=== PATIENT | male | born 1955 | race Caucasian/White ===

== ENCOUNTER 2020-09-14 07:37 | Outpatient (REF) | payer MEDICARE, SELFPAY ==
[2020-09-14 08:19] LABS: MANUAL DIFF FLAG NO
[2020-09-14 08:22] LABS: Basophils Absolute Auto 0.1 X10*3/uL (0.0-0.2); Basophils Percent Auto 0.8 % (0-2); Eosinophils Absolute Auto 0.3 X10*3/uL (0.0-0.4); Hematocrit 46.1 % (42-52); Hemoglobin 16.1 g/dl (14.0-18.0); Imm Gran Abs Auto 0.04 X10*3/uL (0.00-0.03); Imm Gran Pct Auto 0.4 % (0.0-0.4); Lymphocytes Absolute Auto 2.9 X10*3/uL (1.2-4.9); Lymphocytes Percent Auto 26.7 % (20-40); Mean Corpuscular HGB Conc 34.9 g/dl (31.0-36.0); Mean Corpuscular Hemoglobin 34.1 pg (27.0-33.0); Mean Corpuscular Volume 97.7 fL (80-98); Mean Platelet Volume 10.4 fL (9.4-12.4); Monocytes Absolute Auto 0.8 X10*3/uL (0.1-1.2); Neutrophils Absolute Auto 6.7 X10*3/uL (2.0-8.3); Neutrophils Percent Auto 62.1 % (45-73); Platelet Count 222 X10*3/uL (160-400); Red Blood Count 4.72 X10*6/uL (4.60-5.80); Red Cell Distribution Width 12.9 % (11.0-16.0); White Blood Count 10.8 X10*3/uL (4.8-10.8)
[2020-09-14 08:48] LABS: Alanine Aminotransferase 18 U/L (0-40); Albumin Level 4.3 g/dL (3.5-5.0); Alkaline Phosphatase 84 U/L (39-117); Anion Gap 12 (12-20); Aspartate Amino Transferase 19 U/L (5-37); Bilirubin Total 0.7 mg/dL (0.0-1.0); Blood Urea Nitrogen 13 mg/dL (9-16); Calcium 9.3 mg/dL (8.4-10.2); Carbon Dioxide 27 mmol/L (22-29); Chloride 101 mmol/L (96-108); Cholesterol 202 mg/dL; Estimated Glomerular Filt Rate > 60; Glucose Fasting 82 mg/dL (60-99); HDL Cholesterol 40 mg/dL; LDL Cholesterol Calculated 148 mg/dl; Potassium 4.2 mmol/l (3.3-5.1); Sodium 136 mmol/L (135-145); Total Protein 7.4 g/dL (6.5-8.0); Triglycerides 72 mg/dL
[2020-09-14 09:09] LABS: Thyroid Stimulating Hormone 0.92 mIU/mL (0.32-4.0)
== END 2020-09-14 07:38 | disposition home or self-care (01) ==
LOC: HO.LAB 07:37
PROVIDERS: PCP Internal Medicine; Visit Provider Internal Medicine
DX: I10 Essential (primary) hypertension (principal)
CPT/HCPCS: 36415; 80053; 80061; 84443; 85025

== ENCOUNTER 2022-04-11 07:47 | Outpatient (REF) | payer MEDICARE, SELFPAY ==
[2022-04-11 08:12] LABS: MANUAL DIFF FLAG NO
[2022-04-11 08:27] LABS: Basophils Absolute Auto 0.1 X10*3/uL (0.0-0.2); Eosinophils Absolute Auto 0.3 X10*3/uL (0.0-0.4); Eosinophils Percent Auto 3.5 % (0-4); Hematocrit 46.3 % (42.0-52.0); Hemoglobin 15.9 g/dl (14.0-18.0); Imm Gran Abs Auto 0.05 X10*3/uL (0.00-0.03); Imm Gran Pct Auto 0.6 % (0.0-0.4); Lymphocytes Percent Auto 35.6 % (20-40); Mean Corpuscular HGB Conc 34.3 g/dl (31.0-36.0); Mean Corpuscular Hemoglobin 33.1 pg (27.0-33.0); Mean Corpuscular Volume 96.5 fL (80.0-98.0); Monocytes Absolute Auto 0.5 X10*3/uL (0.1-1.2); Monocytes Percent Auto 6.1 % (2-11); Neutrophils Absolute Auto 4.5 x10*3/uL (2.0-8.3); Neutrophils Percent Auto 53.2 % (45-73); Platelet Count 189 X10*3/uL (160-400); Red Cell Distribution Width 12.5 % (11.0-16.0); White Blood Count 8.4 X10*3/uL (4.8-10.8)
[2022-04-11 08:41] LABS: Alanine Aminotransferase 26 U/L (0-40); Albumin Level 4.1 g/dL (3.5-5.0); Alkaline Phosphatase 80 U/L (39-117); Anion Gap 10 (12-20); Aspartate Amino Transferase 23 U/L (5-37); Bilirubin Total 0.6 mg/dL (0.0-1.0); Blood Urea Nitrogen 9 mg/dL (9-16); Calcium 9.4 mg/dL (8.4-10.2); Carbon Dioxide 26 mmol/L (22-29); Chloride 104 mmol/L (96-108); Cholesterol 202 mg/dL; Estimated Glomerular Filt Rate > 60; Glucose Fasting 99 mg/dL (60-99); HDL Cholesterol 36 mg/dL; LDL Cholesterol Calculated 154 mg/dl; Potassium 4.4 mmol/L (3.3-5.1); Sodium 136 mmol/L (135-145); Total Protein 7.3 g/dL (6.5-8.0); Triglycerides 63 mg/dL
[2022-04-11 09:03] LABS: Thyroid Stimulating Hormone 1.06 uIU/mL (0.32-4.0)
== END 2022-04-11 07:48 | disposition home or self-care (01) ==
LOC: HO.LAB 07:47
PROVIDERS: PCP Internal Medicine; Visit Provider Internal Medicine
DX: Z00.00 Encounter for general adult medical examination without abnormal findings (principal); Z13.0 Encounter for screening for diseases of the blood and blood-forming organs and certain disorders involving the immune mechanism; Z13.9 Encounter for screening, unspecified; E78.5 Hyperlipidemia, unspecified
CPT/HCPCS: 36415; 80053; 80061; 84443; 85025

== ENCOUNTER 2024-03-14 08:26 | Outpatient (REF) | payer MEDICARE, SELFPAY ==
[2024-03-14 08:45] LABS: MANUAL DIFF FLAG NO
[2024-03-14 08:58] LABS: Basophils Absolute Auto 0.1 X10*3/uL (0.0-0.2); Basophils Percent Auto 1.1 % (0-2); Eosinophils Absolute Auto 0.4 X10*3/uL (0.0-0.4); Eosinophils Percent Auto 4.7 % (0-4); Hematocrit 48.4 % (42.0-52.0); Hemoglobin 16.5 g/dl (14.0-18.0); Imm Gran Pct Auto 1.2 % (0.0-0.4); Lymphocytes Absolute Auto 2.2 X10*3/uL (1.2-4.9); Lymphocytes Percent Auto 25.1 % (20-40); Mean Corpuscular HGB Conc 34.1 g/dl (31.0-36.0); Mean Corpuscular Hemoglobin 33.3 pg (27.0-33.0); Mean Corpuscular Volume 97.6 fL (80.0-98.0); Mean Platelet Volume 10.1 fL (9.4-12.4); Monocytes Absolute Auto 0.6 X10*3/uL (0.1-1.2); Monocytes Percent Auto 7.1 % (2-11); Neutrophils Absolute Auto 5.2 x10*3/uL (2.0-8.3); Neutrophils Percent Auto 60.8 % (45-73); Platelet Count 176 X10*3/uL (160-400); Red Blood Count 4.96 X10*6/uL (4.60-5.80); Red Cell Distribution Width 12.9 % (11.0-16.0); White Blood Count 8.6 X10*3/uL (4.8-10.8)
[2024-03-14 09:28] LABS: Alanine Aminotransferase 19 U/L (0-40); Albumin Level 4.2 g/dL (3.5-5.0); Alkaline Phosphatase 91 U/L (39-117); Anion Gap 12 (12-20); Aspartate Amino Transferase 21 U/L (5-37); Bilirubin Total 0.6 mg/dL (0.0-1.0); Blood Urea Nitrogen 13 mg/dL (9-16); Calcium 9.5 mg/dL (8.4-10.2); Carbon Dioxide 27 mmol/L (22-29); Chloride 105 mmol/L (96-108); Cholesterol 209 mg/dL (<200); Estimated Glomerular Filt Rate > 60; Glucose Fasting 93 mg/dL (60-99); HDL Cholesterol 35 mg/dL (>40); LDL Cholesterol Calculated 155 mg/dL (<100); Potassium 4.1 mmol/L (3.3-5.1); Sodium 140 mmol/L (135-145); Total Protein 7.8 g/dL (6.5-8.0); Triglycerides 99 mg/dL (<150)
[2024-03-14 09:46] LABS: Prostate Specific Antigen Scr 2.93 ng/mL (<0.05-4.0)
== END 2024-03-14 08:27 | disposition home or self-care (01) ==
LOC: HO.LAB 08:26
PROVIDERS: PCP Internal Medicine; Visit Provider Internal Medicine
DX: Z00.00 Encounter for general adult medical examination without abnormal findings (principal); Z13.220 Encounter for screening for lipoid disorders; Z12.5 Encounter for screening for malignant neoplasm of prostate; Z20.2 Contact with and (suspected) exposure to infections with a predominantly sexual mode of transmission
CPT/HCPCS: 36415; 80053; 80061; 84153; 85025

== ENCOUNTER 2024-03-19 08:54 | Outpatient (AMB) | payer MEDICARE, SELFPAY ==
[2024-03-19 09:06] VITALS: BP 142/90; PULSE 70; O2SAT 97; BMI 27.8
--- NOTE | 2024-03-19 09:06 | MHC.PC.OV ---
Vital Signs 03/19/24 09:06 Height 6 ft Weight 205 lb BMI 27.8 BP 142/90 H Blood Pressure Location Lt brachial Position Sitting Pulse 70 Pulse Source Pulse Oximeter Pulse Oximetry (%) 97 Oxygen Delivery Method Room Air Intake Visit Reasons: pe [employer] Sales Representative Required: No Network Developer: Not Required per policy Accompanied by: Self / Same As Patient Allergies No Known Allergies [No Known Allergies*] Allergy (Verified 03/19/24 09:06) Medication List - Last Reconciled 03/19/24 by Cale Davis MD losartan 50 mg PO DAILY Tobacco use date assessed: 03/19/24 Fall risk assessment: No Falls in past year Last assessed Fall Risk: 03/19/24 Dental Screening Dental Screen Date: 03/19/24 Did you have a dental visit in the last 12 months?: No Did you have a dental problem in the last 6 months where you did not have access to dental care?: No Was dental information given to patient?: Patient has dentist HPI pe HPI Details HTN on Rx; doing well PFSH Medical History (Updated 03/19/24 @ 09:31 by Cale Davis MD) Hypertension Surgical History H/O knee surgery Family History (Updated 03/19/24 @ 09:11 by DESIREE Rowe) Father No problems noted. Mother No problems noted. 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 1. Little interest or pleasure in doing things: not at all 2. Feeling down, depressed, or hopeless: not at all 3. Trouble falling or staying asleep, or sleeping too much: not at all 4. Feeling tired or having little energy: not at all 5. Poor appetite or overeating: not at all 6. Feeling bad about yourself - or that you are a failure or have let yourself or your family down: not at all 7. Trouble concentrating on things, such as reading the newspaper or watching television: not at all 8. Moving or speaking so slowly that other people could have noticed. Or the opposite - being so fidgety or restless that you have been moving around a lot more than usual: not at all 9. Thoughts that you would be better off or of hurting yourself in some way: not at all Total score: 0 Depression Screening Interpretation: Negative Depression Screening Done: Yes 72952 - PHQ-9 Billing: Yes Source: Developed by Drs. Dwight Muoñz, Mag Wynn, Andrea Gutierrez and colleagues, with an educational jose from [employer]. Thrive Questionnaire Date Thrive assessed: 03/19/24 I am a: Patient What is your living situation today?: I have a steady place to live Within the past 12 months, did the food you bought not last and you didn't have the money to get more?: Never true Within the past 12 months, did you worry whether your food would run out before you got money to buy more?: Never true Do you have trouble paying for medicines?: No Do you have trouble getting transportation to medical appointments?: No Do you have trouble paying your heating and electricity bill?: No Do you have trouble taking care of your child, family member or friend?: No Do you have trouble with day-to-day activities such as bathing, preparing meals, shopping, managing finances, etc.?: No Are you currently unemployed and looking for a job?: No Are you interested in more education?: No Please select the resources that you would like help with: None THRIVE Score: 0 AUDIT C Alcohol Use Questionnaire (AUDIT-C) 1. How often do you have a drink containing alcohol?: Never Total Score: 0 Score Reviewed/Action Taken: Yes TIMOTHY-7 AMB Questionnaire TIMOTHY-7 Date TIMOTHY - 7 assessed: 03/19/24 Feeling nervous, anxious, or on edge: 0 = Not at all Not being able to stop or control worryin = Not at all Worrying too much about different things: 0 = Not at all Trouble relaxin = Not at all Being so restless that it is hard to sit still: 0 = Not at all Becoming easily annoyed or irritable: 0 = Not at all Feeling afraid as if something awful might happen: 0 = Not at all Total TIMOTHY-7 score (0-4 normal; 5-9 mild; 10-14 moderate; 15-21 severe): 0 Source: Developed by Drs. Dwight Muñoz, Mag Wynn, Andrea Gutierrez and colleagues, with an educational jose from [employer]. TIMOTHY-7 Assessment Billing TIMOTHY-7 Assessment Tool: TIMOTHY-7 Assessment 60915 Review of Systems Const Denies chills, Denies fatigue, Denies headache(s) and Denies weight loss Eyes Denies change in vision, Denies diplopia and Denies eye pain ENT Denies vertigo, Denies dizziness, Denies headache(s) and Denies nasal discharge Card Denies chest pain, Denies rapid heart rate and Denies dyspnea on exertion Resp Denies chest congestion, Denies cough, Denies pain with cough and Denies dyspnea on exertion GI Denies abdominal pain, Denies hematochezia and Denies change in bowel habits Musc Denies myalgias, Denies arthralgias and Denies joint swelling Skin/Breast Denies lesions and Denies unusual bruising Neuro Denies vertigo, Denies dizziness, Denies headache(s) and Denies focal weakness Endo Denies fatigue Physical exam (Primary Care) Vital Signs: Last Vital Signs Pulse 70 03/19/24 09:06 BP 142/90 H 03/19/24 09:06 Pulse Ox 97 03/19/24 09:06 Oxygen Delivery Method Room Air 03/19/24 09:06 BMI result Body Mass Index 27.8 Tobacco/Smoking Status: Tobacco use Status Tobacco use date assessed 03/19/24 03/19/24 09:07 Patient Tobacco Use Status Current everyday Tobacco 03/19/24 09:07 Tobacco use type Cigarette 03/19/24 09:07 e-Cigarette/Vaping Use Never Used 03/19/24 09:07 PHQ-9: PHQ-9 Score PHQ-9: Total score 0 03/19/24 09:07 Depression Screening Interpretation: Negative Thrive Assessment: Date of Thrive Assessment Date Thrive assessed 03/19/24 03/19/24 09:07 Const General: cooperative, healthy appearing and no acute distress Orientation/consciousness: oriented to person, oriented to place and oriented to time HENMT Head: Yes normal to inspection, Yes normocephalic and Yes atraumatic Mouth: Normal oral and palatal mucosa present and tongue normal Throat: Yes posterior oropharynx normal and Yes uvula midline Eyes General: appearance normal, both eyes and all related structures Neck Neck: Yes normal visual inspection, Yes full ROM and Yes no lymphadenopathy Thyroid: Thyroid normal Carotids: normal carotid upstroke Chest Chest palpation & inspection: normal inspection of the chest Resp Effort & Inspection: normal respiratory effort and able to speak in complete sentences Auscultation: clear to auscultation bilaterally Cardio Jugular venous distension: no JVD Palpation: normal PMI Rate: regular rate Rhythm: regular rhythm Heart sounds: S1 normal heart sound present and S2 normal heart sound present GI Inspection: Yes normal to inspection Palpation (GI): Soft to palpation and No hepatosplenomegaly present Auscultation: normal bowel sounds General: Yes no CVA tenderness Back/Spine/Pelvis Back: no CVA tenderness Skin General skin exam: no rashes or lesions noted Neuro General: oriented to person, oriented to place and oriented to time Extrem General: Yes normal to inspection and Yes full ROM Assessment and Plan Assessment & Plan (1) Physical exam: Code(s): Z00.00 - Encounter for general adult medical examination without abnormal findings Plan: stable (2) Hypertension: Code(s): I10 - Essential (primary) hypertension Plan: stable; same rx Orders: Orders Lipid Panel 03/14/24 Z13.220 - Encounter for screening for lipoid disorders Complete Blood Count Auto Diff 03/14/24 Z13.0 - Encounter for screening for diseases of the blood and blood-forming organs and certain disorders involving the immune mechanism Prostate Specific Antigen Scr 03/14/24 Z00.00 - Encounter for general adult medical examination without abnormal findings Comprehensive [place]. Panel Fast 03/14/24 Z13.9 - Encounter for screening, unspecified Referrals Gastroenterology Referral K63.5 - Polyp of colon Coding Level of Care Code Est Pt Prev Care >65y(97699) Diagnoses Physical exam Z00.00 Hypertension I10 Additional Codes TIMOTHY-7 Assessment Billing - TIMOTHY-7 Assessment Tool: TIMOTHY-7 Assessment 92294 ([id number])
== END 2024-03-19 09:27 | disposition home or self-care (01) ==
PROVIDERS: Visit Provider Internal Medicine
DX: Z00.00 Encounter for general adult medical examination without abnormal findings (principal); I10 Essential (primary) hypertension
CPT/HCPCS: 99397

== ENCOUNTER 2024-11-03 06:48 | Day surgery (SDC) | payer MEDICARE, SELFPAY ==
[2024-10-30 15:46] VITALS: BMI 27.7
--- NOTE | 2024-10-31 09:25 | HO.ANESPROP2 ---
Documented by User: Elina García NP 10/31/24 09:25 HPI - Anesthesia Eval Consult details Narrative: 69yo M for Colonoscopy PMFSH Active Problems Active Problems: All Active Problems Colon polyps (Acute) Physical exam (Acute) Hypertension (Acute) Past Medical History Medical History History of Mohs micrographic surgery for skin cancer Hypertension Family History Family History Father No problems noted. Mother No problems noted. Surgical History Surgical History Hx of colonoscopy H/O knee surgery Social History Social History Housing: House Are you a primary respiratory care practitioner to a significant other at home: No Do you presently have visiting nurse or other home services: No Alcohol intake: never Patient Tobacco Use Status: Current everyday Tobacco user Tobacco use type: Cigarette Cigarettes Per Day: 10 Smoked in Last 30 Days: Yes e-Cigarette/Vaping Use: Never Used Patient Interested in Nicotine Replacement: No Second Hand Smoke Exposure: Yes Have you been hit, kicked, punched, or otherwise hurt by someone within the past year? 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: No Cognitive needs: No Hearing needs: No Vision needs: Yes (glasses ) Meds Allergies Allergy/AdvReac Type Severity Reaction Status Date / Time No Known Allergies Allergy Verified 11/03/24 07:35 [No Known Allergies*] Exam Height,Weight and Vital Signs: Height 6 ft Weight 92.533 kg Assessment and Plan Assessment Anesthesia Assessment: Chart Reviewed Documented by User: Hortencia Caraballo MD 11/03/24 07:39 [facility] Past Medical History Medical History History of Mohs micrographic surgery for skin cancer Hypertension Family History Family History Father No problems noted. Mother No problems noted. Family history of problems with anesthesia: No Surgical History Surgical History Hx of colonoscopy H/O knee surgery History of Problems with Anesthesia: No Social History Social History Housing: House Are you a primary respiratory care practitioner to a significant other at home: No Do you presently have visiting nurse or other home services: No Alcohol intake: never Patient Tobacco Use Status: Current everyday Tobacco user Tobacco use type: Cigarette Cigarettes Per Day: 10 Smoked in Last 30 Days: Yes e-Cigarette/Vaping Use: Never Used Patient Interested in Nicotine Replacement: No Second Hand Smoke Exposure: Yes Have you been hit, kicked, punched, or otherwise hurt by someone within the past year? 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: No Cognitive needs: No Hearing needs: No Vision needs: Yes (glasses ) Meds Allergies Allergy/AdvReac Type Severity Reaction Status Date / Time No Known Allergies Allergy Verified 11/03/24 07:35 [No Known Allergies*] Exam Airway Mallampati Class: II TM Dist: >3cm Neck ROM: Full Heart: rrr Lungs: cta Assessment and Plan Assessment Anesthesia Assessment: Anesthesia Plan Discussed Final Anesthetic Review Family History of Problems with Anesthesia: No History of Problems with Anesthesia: No NPO: Yes ASA Class: III Final Preanesthetic Review: No Changes in Pt Med Stat, Meds/Allgs Chart Reviewed, Consent Obtained/Reviewed and Anes Risks/Benef Reviewed Patient Risk: Intermediate Procedure Risk: Low Anesthetic Plan Anesthetic Plan: MAC: Disposition: Standard PACU
--- OUTSIDE RECORDS SUMMARY | 2024-11-03 06:50 | XMS_ITS ---
Author Organization [facility] Address [address] [place] [address] Care Team Providers Care Appeals Writer Name Role Phone Cale Davis MD Primary Care Provider Dwight Mckeon Unavailable [phone] REASON FOR VISIT screening,hx polyps Encounters Encounter Location Date Provider Diagnosis [facility] [place] Out[place] [address] [place] [id number] 11/03/2024 Dwight Rodriguez PLAN OF TREATMENT Next Appt Details Provider Name:Dwight Rodriguez , 11/03/2024 08:30:00 AM, [address] [facility] , [place], [place], [phone],
--- OUTSIDE RECORDS SUMMARY | 2024-11-03 06:50 | XMS_ITS ---
Author Organization [facility] Address [address] [place] [address] Care Team Providers Care Roll Changer Name Role Phone Cale Davis MD Primary Care Provider Dwight Mckeon Unavailable [phone] ALLERGIES No Known Allergies REASON FOR VISIT Patient presents today for a colon screening MEDICATIONS Medication SIG (Take, Route, Frequency, Duration) Notes Start Date End Date Status Losartan Potassium 50 MG Oral for 100 Active SOCIAL HISTORY Tobacco Use: Social History Observation Description Date Details (start date - stop date) Current Smoker NA - NA Sex Assigned At : Social History Observation Description Sex Assigned At Unknown Tobacco Use/Smoking Question Answer Notes Patient is a current smoker How often do you smoke cigarettes? every day How many cigarettes a day do you smoke? 6-10 How soon after you wake up do you smoke your fir st cigarette? after 60 minutes Are you interested in quitting? Not ready to wili t Alcohol Screen Question Answer Notes Did you have a drink contain ing alcohol in the past year? Yes How often did you have a dri nk containing alcohol in the past year? Monthly or less (1 point) How many drinks did you have on a typical day when you were drinking in the past year? 1 or 2 drinks (0 point) How often did you have 6 or more drinks on one occasion in the past year? Never (0 point) Points 1 Interpretation Negative VITAL SIGNS BMI 27.66 kg/m2 07/22/2024 Blood pressure systolic 00 mm Hg 07/22/20 24 Blood pressure diastolic 00 mm Hg 024 Height 72 in 07/22/2024 Weight 204 lbs 07/22/2024 Encounters Encounter Location Date Provider Diagnosis [facility] [address] [place] [address] 07/22/2024 Dwight Rodriguez History of adenomato us polyp of colon Z86.010 ; Preprocedural examination Z01.818 and Encounter for screening for malignant neoplasm of colon Z12.11 ASSESSMENTS Encounter Date Diagnosis Assessment Notes Treatment Notes Treatment Clinical Notes 07/22/2024 History of adenomatous polyp of colon (ICD-10 - Z86.010) 07/22/2024 Preprocedural examination (ICD-10 - Z01.818) 07/22/2024 Encounter for screening for malignant neoplasm of colon (ICD-10 - Z12.11) PLAN OF TREATMENT Future Test Test Name Order Date COLONOSCOPY 07/22/2024 Next Appt Details Follow Up: prn, Reason: Provider Name:Dwight Rodriguez , 11/03/2024 08:30:00 AM, [address] [place] [address] , [place], [place], [phone], Progress Notes * Examination Category Sub-Category Detail Notes General Examination GENERAL APPEARANCE: pleasant , well nourished, well developed, in no acute distress HEAD: EYES: sclera non-icteric EARS: NOSE: THROAT: NECK/THYROID: no cervical lymphade nopathy, neck supple HEART: S1, S2 normal CHEST: LUNGS: clear to auscultatio n bilaterally ABDOMEN: normal bowel sounds, no guarding or rigidity, no guarding or rigidity, no masses palpable, soft, nontender, nondistended NEUROLOGIC: alert and oriented SKIN: nonjaundiced, no spi sherwin angiomata EXTREMITIES: no edema PERIPHERAL PULSES: BACK: BREASTS: MUSCULOSKELETAL: MALE GENITOURINARY: LYMPH NODES: RECTAL EXAM: FEMALE GENITOURINARY: ORAL CAVITY: mucosa moist
--- OUTSIDE RECORDS SUMMARY | 2024-11-03 06:50 | XMS_ITS | Patient Health Record ---
Author Organization [facility] Address [address] [place] [address] Care Team Providers Care Sheriff Name Role Phone Cale Davis MD Primary Care Provider Dwight Mckeon Unavailable [phone] ALLERGIES No Known Allergies REASON FOR REFERRAL No Information MEDICATIONS Medication SIG (Take, Route, Frequency, Duration) [...] Never (0 point) Points 1 Interpretation Negative PROBLEMS Problem Type ICD Code Onset Dates Problem Status W/U Status Risk SNOMED Code Notes Problem History of adenomatous polyp of colon (Z86.010) Active confirmed [id number] Problem Encounter for screening for malignant neoplasm of colon (Z12.11) Active confirmed 697828021 Problem Preprocedural examination (Z01.818) Active confirmed [id number] VITAL SIGNS Blood pressure diastolic 00 mm Hg 07/22/2024 Height 72 in 07/22/2024 Blood pressure systolic 00 mm Hg 07/22/2024 Weight 204 lbs 07/22/2024 BMI 27.66 kg/m2 07/22/2024 Encounters Encounter Location Date Provider Diagnosis [facility] [place] Out[facility] [address] [place], [place] [phone] 11/03/2024 Dwight Rodriguez [facility] [address] [place] [address] 07/22/2024 Dwight Rodriguez History of adenomato us [...] Future Test Test Name Order Date COLONOSCOPY 10/17/2017 COLONOSCOPY 07/22/2024 Next Appt Details Provider Name:Dwight Rodriguez , 11/03/2024 08:30:00 AM, [address] [facility] , [place], [place], [phone], Insurance Providers Payer Name Payer Address Payer Phone Subscriber Number Group Number Insured Name Patient Relationship to Insured Coverage Start Date Coverage End Date [facility] [address] [place] [address] [id number] THOR GERMAN Self - patient is the insured MEDICAL (GENERAL) HISTORY Medical History History ICD Code Hypertension Screening colonoscopy 7--1 1.5cm tubular adenoma removed from the rectum, diverticulosis, internal hemorrhoids Denies NH,DM,CVA,Lung disease,renal dise ase Screening colonoscopy in Dec with small tubular adenomas and hyperplastic polyps removed Surgical History Surgery Date(Month/Year) Right knee arthroscopy 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
[2024-11-03 07:15] VITALS: BMI 27.1
[2024-11-03] MEDS: Lactated Ringers 1,000 ML 100 ML IVCONT (07:21)
[2024-11-03 07:30] VITALS: BP 144/87; PULSE 74; RESP 18; TEMP 36.7; O2SAT 98
[2024-11-03 09:28] VITALS: BP 101/58; PULSE 69; RESP 16; TEMP 36.4; O2SAT 98
--- NOTE | 2024-11-03 09:30 | PM.OP ---
Brief Operative Note Date of Service: 11/03/24 Pre-op diagnosis: Screening Post-op diagnosis: other (Rectal polyp) Procedure: Colonoscopy to the cecum and TI with hot snare polypectomy Surgeon: Dwight Rodriguez MD Anesthesia: MAC Was an River Expedition Guide used for this Procedure?: No Estimated blood loss (mL): 0 Pathology: other (A. Distal rectal polyp) Condition: stable Disposition: PACU
[2024-11-03 09:43] VITALS: BP 127/68; PULSE 65; RESP 18; O2SAT 98
[2024-11-03 09:57] VITALS: BP 154/92; PULSE 68; RESP 18; TEMP 36.5; O2SAT 95
--- NOTE | 2024-11-03 10:13 | OP_ITS ---
DATE OF SERVICE: 11/03/2024 SURGEON: Dwight Rodriguez MD INDICATIONS: The patient presents for evaluation of personal history of tubular adenoma of the colon and need for colorectal cancer screening. Full consent obtained from him for this, including risks of bleeding and perforation. PREOPERATIVE DIAGNOSIS: Personal history of tubular adenoma of the colon. POSTOPERATIVE DIAGNOSIS: Personal history of tubular adenoma of the colon, colon polyp, diverticulosis, and internal hemorrhoids. PROCEDURE PERFORMED: Colonoscopy to cecum and terminal ileum with hot snare polypectomy. ESTIMATED BLOOD LOSS: COMPLICATIONS: ANESTHESIA: Monitored anesthesia care. ASSISTANTS: SPECIMENS: DESCRIPTION OF PROCEDURE: The patient was placed in the left lateral decubitus position. The digital rectal exam revealed no abnormalities. The Olympus video pediatric colonoscope was entered into the rectum and advanced easily to the cecum. Once in the cecum, I did identify normal-appearing cecal pouch with appendiceal orifice and a normal-appearing ileocecal valve. The terminal ileum was cannulated and appeared normal. Scope was withdrawn back in the colon. The entire cecum and ileocecal valve appeared normal. Scope was slowly withdrawn, assessing all mucosal surfaces carefully. For the most part, preparation was very good throughout the colon, but did require some irrigation and suctioning. There was a mild amount of sigmoid diverticulosis. I did not visualize any sign of colitis nor angiodysplasia. The only polyp I visualized was in the distal rectum seen both in the retroflexed in forward viewing position. This was approximately 10 to 12 mm in size and was removed by hot snare polypectomy and recovered by suction. The polypectomy site appeared clean, without any sign of residual polyp nor bleeding. Internal hemorrhoids were noted as well. The scope was withdrawn from the patient. He tolerated the procedure well and was returned to recovery area in stable condition. IMPRESSION: 1. Rectal polyp. 2. Diverticulosis. 3. Internal hemorrhoids. PLAN: The results of the pathology will be checked. I would recommend a repeat colonoscopy in 5 years. He was advised not to use any aspirin or NSAIDs for 1 week. MD RACHID Alvarado/ARUN / [phone]
== END 2024-11-03 10:21 | disposition home or self-care (01) ==
PROVIDERS: PCP Internal Medicine; Visit Provider Internal Medicine
PROC: 0DJD8ZZ Inspection of Lower Intestinal Tract, Via Natural or Artificial Opening Endoscopic (ICD-10-PCS; CPT 45378; principal; 2024-11-03 08:30)
DX: Z12.11 Encounter for screening for malignant neoplasm of colon (principal); K62.1 Rectal polyp; K57.30 Diverticulosis of large intestine without perforation or abscess without bleeding; K64.8 Other hemorrhoids; Z86.0101 Personal history of adenomatous and serrated colon polyps; I10 Essential (primary) hypertension; F17.210 Nicotine dependence, cigarettes, uncomplicated; Z79.899 Other long term (current) drug therapy
CPT/HCPCS: 45385; 88305; J2003; J2704

== ENCOUNTER 2025-03-12 09:34 | Outpatient (AMB) | payer MEDICARE, SELFPAY ==
--- NOTE | 2025-03-12 09:48 | A.OFFPC_ITS ---
Vital Signs 03/12/25 09:49 Height 6 ft Weight 208 lb 6 oz BMI 28.3 BP 152/82 H Blood Pressure Location Lt brachial Position Sitting Respiration 17 Pulse 75 Pulse Source Pulse Oximeter Temp 97.3 F Temp Source Temporal Artery Scan Pulse Oximetry (%) 97 Oxygen Delivery Method Room Air Intake Visit Reasons: JERAD from Dr. Davis Layout Former Required: No Accompanied by: Self / Same As Patient Allergies No Known Allergies [No Known Allergies*] Allergy (Verified 03/12/25 10:02) Medication List - Last Reconciled 03/12/25 by Aden Olivares PA-C losartan 50 mg PO DAILY Tobacco use date assessed: 03/12/25 Fall risk assessment: No Falls in past year Last assessed Fall Risk: 03/12/25 Dental Screening Dental Screen Date: 03/12/25 Did you have a dental visit in the last 12 months?: Yes Did you have a dental problem in the last 6 months where you did not have access to dental care?: No Was dental information given to patient?: Patient has dentist HPI JERAD from Dr. Davis HPI Details Dougie is a 69-year-old male here today for a transfer of care visit. Previous PCP was Dr. Davis. Patient has a past medical history significant for hypertension and hyperlipidemia. HTN: managed with losartan, exhibiting average home readings of 129-130 mmHg, t tere elevated readings suggest [place] Hypertension in clinical settings. . Tobacco dependency: The patient reports longstanding tobacco use since adolescence, presently smoking half a pack a day. This qualifies him for a lung cancer screening, particularly a low-dose CT scan, which he agreed to pursue. .. Borderline high cholesterol: Has a history of borderline high cholesterol, will recheck his fasting labs to ensure stable cholesterol. Vaccines: Needs pneumonia vaccine [facility] Medical History History of Mohs micrographic surgery for skin cancer Hypertension Surgical History Hx of colonoscopy H/O knee surgery Family History Father No problems noted. Mother No problems noted. 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 1. Little interest or pleasure in doing things: not at all 2. Feeling down, depressed, or hopeless: not at all 3. Trouble falling or staying asleep, or sleeping too much: not at all 4. Feeling tired or having little energy: not at all 5. Poor appetite or overeating: not at all 6. Feeling bad about yourself - or that you are a failure or have let yourself or your family down: not at all 7. Trouble concentrating on things, such as reading the newspaper or watching television: not at all 8. Moving or speaking so slowly that other people could have noticed. Or the opposite - being so fidgety or restless that you have been moving around a lot more than usual: not at all 9. Thoughts that you would be better off or of hurting yourself in some way: not at all Total score: 0 Depression Screening Interpretation: Negative Depression Screening Done: Yes 46144 - PHQ-9 Billing: Yes Source: Developed by Drs. Dwight Muñoz, Mag Wynn, Andrea Gutierrez and colleagues, with an educational jose from [employer]. Thrive Questionnaire Date Thrive assessed: 03/12/25 I am a: Patient What is your living situation today?: I have a steady place to live Within the past 12 months, did the food you bought not last and you didn't have the money to get more?: Never true Within the past 12 months, did you worry whether your food would run out before you got money to buy more?: Never true Do you have trouble paying for medicines?: No Do you have trouble getting transportation to medical appointments?: No Do you have trouble paying your heating and electricity bill?: No Do you have trouble taking care of your child, family member or friend?: No Do you have trouble with day-to-day activities such as bathing, preparing meals, shopping, managing finances, etc.?: No Are you currently unemployed and looking for a job?: No Are you interested in more education?: No Please select the resources that you would like help with: None Currently or been in a relationship where the following occur: No concerns reported THRIVE Score: 0 AUDIT C Alcohol Use Questionnaire (AUDIT-C) 1. How often do you have a drink containing alcohol?: Never 3. How often do you have six or more drinks on one occasion?: Never Total Score: 0 Score Reviewed/Action Taken: Yes TIMOTHY-7 AMB Questionnaire TIMOTHY-7 Date TIMOTHY - 7 assessed: 03/12/25 Feeling nervous, anxious, or on edge: 0 = Not at all Not being able to stop or control worryin = Not at all Worrying too much about different things: 0 = Not at all Trouble relaxin = Not at all Being so restless that it is hard to sit still: 0 = Not at all Becoming easily annoyed or irritable: 0 = Not at all Feeling afraid as if something awful might happen: 0 = Not at all Total TIMOTHY-7 score (0-4 normal; 5-9 mild; 10-14 moderate; 15-21 severe): 0 Source: Developed by Drs. Dwight Muñoz, Mag Wynn, Andrea Gutierrez and colleagues, with an educational jose from [employer]. TIMOTHY-7 Assessment Billing TIMOTHY-7 Assessment Tool: TIMOTHY-7 Assessment 46690 Review of Systems Const Denies headache(s) Eyes Denies loss of vision ENT Denies vertigo, Denies dizziness, Denies headache(s) and Denies sore throat Card Denies chest pain, Denies leg edema and Denies lightheadedness Resp Denies cough, Denies hemoptysis and Denies wheezing GI Denies abdominal pain, Denies melena, Denies constipation, Denies diarrhea and Denies vomiting Denies dysuria, Denies urinary frequency and Denies urinary urgency Musc Denies arthralgias, Denies joint swelling, Denies numbness and Denies tingling Neuro Denies Abnormal speech present, Denies behavioral changes, Denies vertigo, Denies dizziness, Denies headache(s), Denies loss of vision, Denies memory loss, Denies numbness and Denies tingling Psych Denies anxiety, Denies behavioral changes, Denies depression, Denies memory loss and Denies panic attacks Navi/Lymph Denies easy bleeding and Denies easy bruising Aller/Immun Denies wheezing Physical exam (Primary Care) Vital Signs: Last Vital Signs Temp 97.3 F 03/12/25 09:49 Pulse 75 03/12/25 09:49 Resp 17 03/12/25 09:49 BP 152/82 H 03/12/25 09:49 Pulse Ox 97 03/12/25 09:49 Oxygen Delivery Method Room Air 03/12/25 09:49 BMI result Body Mass Index 28.3 Tobacco/Smoking Status: Tobacco use Status Tobacco use date assessed 03/12/25 03/12/25 09:53 Patient Tobacco Use Status Current everyday Tobacco 03/12/25 10:08 Tobacco use type Cigarette 03/12/25 10:08 e-Cigarette/Vaping Use Never Used 03/12/25 10:08 PHQ-9: PHQ-9 Score PHQ-9: Total score 0 03/12/25 10:05 Depression Screening Interpretation: Negative Thrive Assessment: Date of Thrive Assessment Date Thrive assessed 03/12/25 03/12/25 09:53 Currently or been in a relationship where the following occur: No concerns reported Const General: healthy appearing, no acute distress, alert and awake Nutritional Appearance: well nourished Orientation/consciousness: oriented to person, oriented to place and oriented to time HENMT Ears: TM's normal bilaterally General nose exam: Normal nasal mucous membranes and turbinates present Eyes Conjunctivae: conjunctivae normal Sclerae: sclerae normal Pupils: Equal, round and reactive pupils present Neck Neck: Yes no lymphadenopathy and Yes no JVD Thyroid: Thyroid normal Carotids: no bruits Resp Effort & Inspection: normal respiratory effort and not tachypneic Auscultation: no crackles, no rales, no rhonchi and no wheezes Cardio Other: SYSTOLIC MURMUR NOTED Rate: regular rate Rhythm: regular rhythm Heart sounds: Murmur heart sound present systolic and normal S1 and S2 GI Palpation (GI): Soft to palpation, nontender, no hepatomegaly and no splenomegaly Auscultation: normal bowel sounds Skin General skin exam: no rashes or lesions noted and dry skin Neuro General: oriented to person, oriented to place and oriented to time Cranial nerves: Yes Equal, round and reactive pupils present Speech: No Abnormal speech present Gait exam (Neuro): Normal gait present Motor exam (neuro): no tremor noted Extrem Right upper extremity: full ROM Left upper extremity: full ROM Right lower extremity: full ROM; no edema Left lower extremity: full ROM; no edema Psych Mental Status: mental status grossly normal Speech and movement: Normal speech and movement present Affect: normal affect Attitude: cooperative Thought process: Normal thought process present Immunizations pneumoc 20-douglas conj-dip cr(PF) 0.5 mL IM syringe Performing Provider: Aden Olivares PA-C [facility] Administered by: AARON Del Real on 03/12/25 10:12 Dose Route Admin Location Dispensed Lot Number Expiration Date [facility] Senior Revenue Accountant 0.5 mL IM Left Deltoid 0.5 mL [id number] 12/20/25 [employer] Medical VIS Given Date VIS Provided VIS Publication Date 03/12/25 Single Vaccine 23 Eligibility Eligibility Date Funding Source Not [facility] Eligible 03/12/25 Private Coding Level of Care Code Est Pt Level 4 (64221) Diagnoses Primary hypertension I10 Hypertension type: primary hypertension Systolic murmur R01.1 Mixed hyperlipidemia E78.2 Hyperlipidemia type: mixed hyperlipidemia Tobacco dependence F17.200 Additional Codes TIMOTHY-7 Assessment Billing - TIMOTHY-7 Assessment Tool: TIMOTHY-7 Assessment 03775 ([id number]) PHQ-9 - 98783 - PHQ-9 Billing: Yes ([id number]) Assessment & Plan Assessment & Plan (1) Hypertension: Code(s): I10 - Essential (primary) hypertension Category: Medical Qualifiers: Hypertension type: primary hypertension Qualified Code(s): I10 - Essential (primary) hypertension Plan: Patient's blood pressure elevated today in office. He does check his blood pressure once a week and reports 120s to 130 systolic. Will continue him on his current dose of losartan 50 mg and consider up titrating per response. Advised to do a little more home blood pressure monitoring. Goal blood pressures to be below 140/90 (2) Systolic murmur: Code(s): R01.1 - Cardiac murmur, unspecified Category: Medical Plan: Patient noted to have a systolic murmur on exam. No overt signs of Congestive heart failure. Will send for baseline cardiac echocardiogram to evaluate valvular/cardiac function. (3) HLD (hyperlipidemia): Code(s): E78.5 - Hyperlipidemia, unspecified Category: Medical Qualifiers: Hyperlipidemia type: mixed hyperlipidemia Qualified Code(s): E78.2 - Mixed hyperlipidemia Plan: Patient has a history of borderline high cholesterol. Will recheck fasting lipid panel to ensure appropriate total cholesterol and LDL. Goal LDL is to be below 130 (4) Tobacco dependence: Code(s): F17.200 - Nicotine dependence, unspecified, uncomplicated Category: Medical Plan: Patient does understand he needs to quit smoking though is not willing to at this time. He has been smoking over the last 40 50 years. He is interested in lung cancer screening Orders: Orders Microalbumin, Random (w Creat) Today I10 - Essential (primary) hypertension Lipid Panel Today E78.2 - Mixed hyperlipidemia Prostate Specific Antigen Scr Today I10 - Essential (primary) hypertension, Z12.5 - Encounter for screening for malignant neoplasm of prostate Comprehensive [place]. Panel Fast Today I10 - Essential (primary) hypertension Pneumococcal 20 Immunization Today I10 - Essential (primary) hypertension, Z23 - Encounter for immunization CA echo transthoracic complete Today R01.1 - Cardiac murmur, unspecified Referrals Thoracic/General Surgery Referral F17.200 - Nicotine dependence, unspecified, uncomplicated Medications: Refilled losartan 50 mg PO DAILY 90 tabs 2RF Patient Instructions: Goal: Blood pressure to be below 140/90 in home readings, LDL to be below 130 Barriers: Adherence to physical activity and healthy eating habits
[2025-03-12 09:49] VITALS: BP 152/82; PULSE 75; RESP 17; TEMP 36.3; O2SAT 97; BMI 28.3
--- OUTSIDE RECORDS SUMMARY | 2025-03-12 10:35 | XMS_ITS ---
Author Organization [facility] Address [address] [place] [address] Care Team Providers Care Sheet Hanger Name Role Phone Cale Davis MD Primary Care Provider Dwight Mckeon Unavailable [phone] Allergies No Known Allergies REASON FOR VISIT Patient presents today for a colon screening Medications Medication SIG (Take, Route, Frequency, Duration) Notes Start Date End Date Status Losartan Potassium 50 MG Oral for 100 Active Social History Tobacco Use: Social History Observation Description Date Details (start date - stop date) Current Smoker NA - NA Tobacco Use/Smoking Question Answer Notes Patient is [...] Never (0 point) Points 1 Interpretation Negative Section Notes: Smoker 1/2 ppd, occasional b eer Vital Signs Blood pressure systolic 00 mm Hg 07/22/20 24 Blood pressure diastolic 00 mm Hg 024 Height 72 in 07/22/2024 Weight 204 lbs 07/22/2024 BMI 27.66 kg/m2 07/22/2024 Encounters Encounter Location Date Provider Diagnosis [facility] [address] [place] [address] [place] [address] 07/22/2024 Dwight Rodriguez History of adenomato us polyp of colon Z86.010 ; Preprocedural examination Z01.818 and Encounter for screening for malignant neoplasm of colon Z12.11 Assessments Encounter Date Diagnosis (ICD Code) Assessment Notes Treatment Notes Treatment Clinical Notes Section Notes 07/22/2024 History of adenomatous polyp of colon (ICD-10 - Z86.010) Overall, Thor appears quite well. Given his previous history of tubular adenomas and his last colonoscopy being over 5 years ago, I did recommend a followup colonoscopy for further screening purposes. We did review the rationale for that in regard to colon cancer prevention. Full consent is obtained for this, including risks of bleeding and perforation. The procedure will be done monitored anesthesia care. Thor was comfortable with this plan. Thank you again for allowing me to participate in Thor's care. I shall continue to keep you advised of his progress. 07/22/2024 Preprocedural examination (ICD-10 - Z01.818) Overall, Thor appears quite well. Given his previous history of tubular adenomas and his last colonoscopy being over 5 years ago, I did recommend a followup colonoscopy for further screening purposes. We did review the rationale for that in regard to colon cancer prevention. Full consent is obtained for this, including risks of bleeding and perforation. The procedure will be done monitored anesthesia care. Thor was comfortable with this plan. Thank you again for allowing me to participate in Thor's care. I shall continue to keep you advised of his progress. 07/22/2024 Encounter for screening for malignant neoplasm of colon (ICD-10 - Z12.11) Overall, Thor appears quite well. Given his previous history of tubular adenomas and his last colonoscopy being over 5 years ago, I did recommend a followup colonoscopy for further screening purposes. We did review the rationale for that in regard to colon cancer prevention. Full consent is obtained for this, including risks of bleeding and perforation. The procedure will be done monitored anesthesia care. Thor was comfortable with this plan. Thank you again for allowing me to participate in Thor's care. I shall continue to keep you advised of his progress. Plan Of Treatment Future Test Test Name Order Date COLONOSCOPY 07/22/2024 Next Appt Details Follow Up: prn, Reason: Progress Notes * THOR GERMANDOB:1955 (69 yo M)Acc No.[id number]:07/22/2024 Progress Notes Patient:?THOR GERMAN Provider:?Dwight Rodriguez MD :1955???Age:69 Y???Sex:Male Дмитрий e:07/22/2024 Address:[address] [place], [place] [id number] Pcp:Cale Davis MD Subjective: * Chief Complaints: * ???Patient presents today fo r a colon screening * HPI: ???incontinence:? I saw Thor in the office today for evaluation of his personal history of tubular adenomas of the colon and need for colorectal cancer screening. ?I last saw Thor in December of 2017, at which time he underwent a followup screening colonoscopy with removal of small tubular adenomas. He presently feels well. He enjoys a good appetite, without any significant heartburn or dysphagia. His bowel movements have been regular and without any signs of bleeding. He denies abdominal pain, jaundice, nor unintentional weight loss. He denies any known family history of colon cancer. * ROS:?General/Constitutional:?Change in appetite?denies.?Chills?denies.?Fatigue?denies.?Ophthalmologic:?Comments?all negative.?ENT:?Comments?all negative.?Respiratory:?hemoptysis?denies.?Cough?denies.?Cardiovascular:?Chest pain?denies.?Orthopnea?denies.?Gastrointestinal:?Comments?See HPI for details.?Genitourinary:?Hematuria?denies.?Dysuria?denies.?Musculoskeletal:?Painful joints?denies.?Weakness?denies.?Skin:?Itching?denies.?Rash?denies.?Neurologic:?Headache?denies.?Seizures?denies.?Psychiatric:?Comments?all negative.? * Medical History:? 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 * Family History:?Father: dece ased, diagnosed with HTN (hypertension).?Mother: , diagnosed with HTN (hypertension).? No colorectal cancer. * Social History:?Tobacco Use:?Tobacco Use/Smoking?Patient is a?current smoker,?How often do you smoke cigarettes??every day,?How many cigarettes a day do you smoke??6-10,?How soon after you wake up do you smoke your first cigarette??after 60 minutes,?Are you interested in quitting??Not ready to quit.?Drugs/Alcohol:?Alcohol Screen?Did you have a drink containing alcohol in the past year??Yes,?How often did you have a drink containing alcohol in the past year??Monthly or less (1 point), How many drinks did you have on a typical day when you were drinking in the past year??1 or 2 drinks (0 point),?How often did you have 6 or more drinks on one occasion in the past year??Never (0 point),?Points?1,?Interpretation?Negative.?Miscellaneous:?Marital status: . 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 ???Smoker 1/2 ppd, occasional beer. * Medications:?TakingLosartan Potassium 50 MG Tablet Oral Taking Losartan Potassium 50 MG Tablet Oral DiscontinuedLisinopril 10 MG Tablet 1 tablet Orally Once a dayMedication List reviewed and reconciled with the patientDiscontinued Lisinopril 10 MG Tablet 1 tablet Orally Once a dayMedication List reviewed and reconciled with the patient * Allergies:?N.K.D.A.yes[Aller gies Verified] Objective: * Vitals:?Wt: 204 lbs, Ht: 72 in, BMI:27.66 Index, BP: 00/00 mm Hg. * Examination: ???General Examination: ?GENERAL APPEARANCE:?pleasant, well nourished, well developed, in no acute distress.?EYES:?sclera non-icteric.?ORAL CAVITY:?mucosa moist.?NECK/THYROID:?no cervical lymphadenopathy, neck supple.?SKIN:?nonjaundiced, no spider angiomata.?HEART:?S1, S2 normal.?LUNGS:?clear to auscultation bilaterally.?ABDOMEN:?normal bowel sounds, no guarding or rigidity, no guarding or rigidity, no masses palpable, soft, nontender, nondistended.?EXTREMITIES:?no edema.?NEUROLOGIC:?alert and oriented.? Assessment: * Assessment: 1.?Preprocedural examination - Z01.818 (Primary)?2.?History of adenomatous polyp of colon - Z86.010?3.?Encounter for screening for malignant neoplasm of colon - Z12.11? Overall, Thor appears quite well. Given his previous history of tubular adenomas and his last colonoscopy being over 5 years ago, I did recommend a followup colonoscopy for further screening purposes. We did review the rationale for that in regard to colon cancer prevention. Full consent is obtained for this, including risks of bleeding and perforation. The procedure will be done monitored anesthesia care. Thor was comfortable with this plan. Thank you again for allowing me to participate in Thor's care. I shall continue to keep you advised of his progress. Plan: * Treatment: 2.?Encounter for screening for malignant neoplasm of colon?Procedure: COLONOSCOPY (Ordered for 07/22/2024)* with MACsched for 11/03/24 a t 8:30 ammiralax * Procedure Codes:?3017F COLOR ECTAL CA SCREEN DOC [id number] Pt scrn tbco and id as [id number] BP SCR NOT PRFRM REC REASON NOS * Preventive Medicine:? ??Counseling:?Care goal follow-up plan:?Above Normal BMI Follow-up?Giving encouragement to exercise,?BMI management provided?Yes.? ??Screenings:?Fall Risk Screening?Fall Risk Assessment:?No falls in the past year,?Assessment:?Not performed, no reason specified.? * Follow Up:?prn * * Sign off status: Completed true * Provider:?Dwight Rodriguez MD Date:? 024 Generated for Vetoi adarsh/Zulay/eTransmitting on:?03/12/2025 10:35 AM EDT History and Physical Notes * HPI (History of Present Illness) Category Sub-Category Detail Notes Category Not es incontinence I saw Thor in the office today for evaluation of his personal history of tubular adenomas of the colon and need for colorectal cancer screening. I last saw Thor in December of 2017, at which time he underwent a followup screening colonoscopy with removal of small tubular adenomas. He presently feels well. He enjoys a good appetite, without any significant heartburn or dysphagia. His bowel movements have been regular and without any signs of bleeding. He denies abdominal pain, jaundice, nor unintentional weight loss. He denies any known family history of colon cancer. Examination Category Sub-Category Detail Notes Category Not es General Examination GENERAL APPEARANCE: pleasant , well [...]
--- OUTSIDE RECORDS SUMMARY | 2025-03-12 10:35 | XMS_ITS ---
Author Organization [facility] Address [address] [place] [address] Care Team Providers Care Junior Web Developer Name Role Phone Susan AMADO, Cale Primary Care Provider Dwight Mckeon [phone] REASON FOR VISIT screening,hx polyps Problems Problem Type SNOMED Code ICD Code Onset Dates Problem Status W/U Status Risk Notes Problem Diverticular disease of colon (591758468) Diverticulosis of large intestine without perforation or abscess without bleeding (K57.30) Active confirmed Encounters Encounter Location Date Provider Diagnosis [facility] [place] Outpatient [address] [place] [phone] 11/03/2024 Dwight Rodriguez Colon cancer scree logan [...] Notes * THOR GERMANDOB:1955 (69 yo M)Acc No.[id number]:11/03/2024 COLON WITH MAC Patient:?THOR GERMAN Provider:?Dwight Rodriguez MD :1955???Age:69 Y???Sex:Male Дмитрий e:11/03/2024 Address:[address] [place] [address] , [phone] Pcp:Cale Davis MD Subjective: * Chief Complaints: * ???1. Screening,hx polyps. * Medical History:? Objective: * Vitals:? Assessment: * Assessment: 1.?Colon cancer screening - Z12.11 (Primary)???2.?Rectal polyp - K62.1???3.?Diverticulosis of large intestine without perforation or abscess without bleeding - K57.30???4.?Other hemorrhoids - K64.8??? Plan: * Treatment: * Procedure Codes:?55813 LESIO N REMOVAL COLONOSCOPY, Modifiers: PT , 0529F INTRVL 3+YRS PTS CLNSCP DOCD, 0528F RCMND FLW-UP 10 YRS DOCD, Modifiers: 1P * * The named appointment provid er may or may not be the originator of this progress note, and it is not deemed complete until electronically signed by the appointment provider. Sign off status: Pending * Provider:?Dwight Rodriguez MD Date:? 024 Generated for Reyna altamirano/Zulay/eTransmitting on:?03/12/2025 10:35 AM EDT
--- OUTSIDE RECORDS SUMMARY | 2025-03-12 10:36 | XMS_ITS | Patient Health Record ---
Author Organization [facility] Address [address] [place] [address] Care Team Providers Care Printed Circuit Board Pcb Designer Name Role Phone Cale Davis MD Primary Care Provider Dwight Mckeon Unavailable [phone] Allergies No Known Allergies Results Component Value Reference Range Notes Pathology (Not yet reviewed by provider) Interpretation: Performing Lab:[facility], [address] [place] [phone] Notes/Report: Name: Thor German Age/Sex: 69/M : 1955 Unit#: [id number] Attend Dr: Dwight Rodriguez MD Re11/03/24 Status : [facility] Location: [facility] Disch: SPEC : [id number] RECD : 11/03/24 STATUS: ALEIXS LEE NUM: [id number] [place]: 11/03/24 [facility] DR: Dwight Rodriguez MD ENTERED: 11/03/24 SP TYPE: Surgical OTHR DR: Cale Davis MD ORDERED: HE Stain/3, Gross Micro L4 Diagnosis Rectum, distal, poly pectomy: Hyperplastic mucosal polyp with prolapse changes. Clinical History Pre-Op Dx: Screening Post-Op Dx: Polyps, diverticulosis, hemorrhoids Microscopic Description Microscopic sections reviewed. Material Received Distal rectal polyp Gross Description Received in formalin labeled ?distal rectal polyp? is a 0.6 cm oliva-pink papular tissue fragment, bisected a nd entirely submitted in a cassette labeled A. CEDS Copies To: Cale Davis MD [facility] Primary Care,[address] [place] [address] Dwight Rodriguez MD [facility] [address] [place] [address] Signed (si gnature on file) Elmer Monroy MD 11/05/24 0945 END OF REPORT Reason For Referral No Information Medications Medication SIG (Take, Route, Frequency, Duration) [...] Notes: Smoker 1/2 ppd, occasional b eer Smoker 1/2 ppd, occasional b eer Problems Problem Type SNOMED Code ICD Code Onset Dates Problem Status W/U Status Risk Notes Problem [id number] Encounter for screening for malignant neoplasm of colon (Z12.11) Active confirmed Problem [id number] History of adenomatous polyp of colon (Z86.010) Active confirmed Problem Diverticular disease of colon (387648760) Diverticulosis of large intestine without perforation or abscess without bleeding (K57.30) Active confirmed Problem 382820472 Preprocedural examination (Z01.818) Active confirmed Vital Signs Blood pressure diastolic 00 mm Hg 07/22/2024 Height 72 in 07/22/2024 Blood pressure systolic 00 mm Hg 07/22/2024 Weight 204 lbs 07/22/2024 BMI 27.66 kg/m2 07/22/2024 Encounters Encounter Location Date Provider Diagnosis [facility] [place] [address] [place], [place] [phone] 11/03/2024 Dwight Rodriguez Colon cancer screeni ng Z12.11 ; Rectal polyp K62.1 ; Diverticulosis of large intestine without perforation or abscess without bleeding K57.30 and Other hemorrhoids K64.8 [facility] [address] [place] [address] 07/22/2024 Dwight Rodriguez History of adenomato us polyp of colon Z86.010 ; Preprocedural examination Z01.818 and Encounter for screening for malignant neoplasm of colon Z12.11 Assessments Encounter Date Diagnosis (ICD Code) Assessment Notes Treatment Notes Treatment Clinical Notes Section Notes 11/03/2024 Colon cancer screening (ICD-10 - Z12.11) 11/03/2024 Rectal polyp (ICD-10 - K62.1) 07/22/2024 History of adenomatous polyp of colon [...] to keep you advised of his progress. 11/03/2024 Diverticulosis of large intestine without perforation or abscess without bleeding (ICD-10 - K57.30) 07/22/2024 Encounter for screening for malignant neoplasm [...] to keep you advised of his progress. 11/03/2024 Other hemorrhoids (ICD-10 - K64.8) Plan Of Treatment Pending Test Test Name Order Date Pathology 11/03/2024 Future Test Test Name Order Date COLONOSCOPY 10/17/2017 COLONOSCOPY 07/22/2024 Insurance Providers Payer Name Payer Address Payer Phone Subscriber Number Group Number Insured Name Patient Relationship to Insured Coverage Start Date Coverage End Date [facility] [address] [place] [address] [id number] THOR GERMAN Self - patient is the insured Medical (General) History Medical History History ICD Code Hypertension Screening colonoscopy 7--1 1.5cm tubular adenoma removed from the rectum, diverticulosis, internal hemorrhoids Denies [place],DM,CVA,Lung disease,renal dise ase Screening colonoscopy in Dec ru2017 with small tubular adenomas and hyperplastic polyps removed Surgical History Surgery Date(Month/Year) Right knee arthroscopy 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
== END 2025-03-12 10:23 | disposition home or self-care (01) ==
PROVIDERS: PCP Physician Assistant; Visit Provider Physician Assistant
DX: I10 Essential (primary) hypertension (principal); R01.1 Cardiac murmur, unspecified; E78.2 Mixed hyperlipidemia; F17.200 Nicotine dependence, unspecified, uncomplicated; Z23 Encounter for immunization

== ENCOUNTER → 2025-03-12 09:34 | Outpatient (BNVA) | payer MEDICARE, SELFPAY | PROVIDERS: PCP Internal Medicine; Visit Provider Physician Assistant | DX: Z23 Encounter for immunization (principal); I10 Essential (primary) hypertension; R01.1 Cardiac murmur, unspecified; E78.2 Mixed hyperlipidemia; F17.200 Nicotine dependence, unspecified, uncomplicated; Z71.6 Tobacco abuse counseling | CPT/HCPCS: 90471; 90677; 96127; 99212 ==

== ENCOUNTER → 2025-04-08 07:48 | Outpatient (REF) | payer MEDICARE, SELFPAY ==
--- NOTE | 2025-04-08 07:52 | CA_ITS ---
Transthoracic Echocardiogram Patient (Last, First, Middle): Dougie Torres J Gender: Male Date of : 1955 Age: 69 Procedure Date: 04/08/2025 Procedure Type: Transthoracic Echocardiogram Location: OP Height: 182.88 cm Weight: 94.35 kg BSA: 2.17 m2 Heart Rate: 70 bpm BP: 152 / 80 mmHg Oven Dauber: SB/RC Referring MD: Aden Olivares PA-C Psychology Teacher: Angel Ramsey MD Symptoms: R01.1 - Cardiac murmur, unspecified Study Quality: Fair ECG Rhythm: Sinus Conclusions: - 1. Normal LV ejection fraction of 60 65% with impaired relaxation filling pattern 2. Calcific changes noted in the aortic valve and mitral annular calcification with normal cardiac valvular Dopplers 3. Mildly dilated left atrium 4. Mildly dilated ascending aorta at 4.1 cm 5. No gross pericardial effusion Findings Procedure Information The quality of the study was technically difficult. The study quality is limited by lung artifact. Left Ventricle Normal left ventricular size, thickness, and systolic function. The visually estimated ejection fraction is between 60-65%. Spectral Doppler is indicative of an impaired relaxation filling pattern. Right Ventricle Normal right ventricular cavity size and systolic function. Atria The left atrium is mildly dilated. There is no evidence of interatrial shunt. The right atrium is normal in size. Aortic Valve There is mild calcification of the aortic valve. There is no aortic valve stenosis. There is no aortic valve regurgitation. Mitral Valve There is mild anterior and moderate posterior mitral leaflet thickening. There is moderate mitral annular calcification. There is trace mitral valve regurgitation. There is no mitral valve stenosis. Pulmonic Valve The pulmonic valve was not well visualized. Tricuspid Valve Likely normal tricuspid valve structure and function. Tricuspid regurgitation envelope is inadequate for calculation of right ventricular systolic pressure. Normal right atrial pressure. Great Vessels The pulmonary artery was not well visualized. There is mild dilatation of the ascending aorta measuring 4.10 cm. Venous The inferior vena cava is normal in size and collapses greater than 50% with inspiration. Pericardium/Pleural There is no evidence of pericardial effusion. Prior Study Comparison No prior study available for comparison. Measurements 2D Linear Measurements IVSd: 1.20 0.6-0.9/0.6-1.0 cm LVIDd: 5.09 3.9-5.3/4.2-5.9 cm LVIDd Index: 2.35 2.4-3.2/2.2-3.1 cm/m2 LVIDs: 3.67 2.0-3.6 cm LVPWd: 1.02 0.7-1.1 cm LA Diam: 4.20 2.7-3.8/3.0-4.0 cm LAIDs Index: 1.94 1.5-2.3 cm/m2 LV Mass: 269.10 67-162/88-224 g LV Mass Index: 124.01 43-95/49-115 g/m2 LVOT Diam: 2.50 3.0+(-)1.3 cm 2D Systolic Function EF 4C: 64.00 >55% EF 2C: 62.10 >55% EF BiP: 64.70 >55% Mitral Valve MV VTI: 0.34 MV Pk Jed: 0.90 MV Mn Jed: 0.57 MV Pk Grad: 3.00 MV Mn Grad: 1.00 MV Pk E: 0.88 MV PK A: 0.89 MV Decel Time: 194.00 E/A: 1.00 E'Lateral: 7.83 E'Medial: 8.59 E/E' Med: 10.30 E/E' Lat: 11.30 PHT: 57.00 MVA PHT: 3.86 MVA Continuity: 3.69 Decel [place]: 4.56 Aortic Valve AoV Pk Jed: 1.26 AoV Pk Grad: 6.00 ELEANOR: 4.71 LVOT LVOT Pk Jed: 1.26 LVOT Mn Jed: 0.84 LVOT VTI: 0.26 LVOT Pk Grad: 6.00 LVOT Mn Grad: 4.00 LVOT Diam: 2.50 LVOT Area: 4.91 Diastolic Function MV Pk E: 0.88 MV Pk A: 0.89 E/A: 1.00 E'Medial: 8.59 E/E' Med: 10.30 E' Laterial: 7.83 E/E' Lat: 11.30 Right Ventricle TAPSE (mm): 23.00 TVS' Jed: 12.60 Tricuspid Valve RA Press: 3.00 Great Vessels Aorta Sinus of Valsalva: 3.80 2.0-3.5 cm Ao Asc: 4.10 2.1-3.4 cm Pulmonary Valve PV Pk Jed: 0.72 Peak PV Grad: 2.00 Updated in Other Vendor System with Status of Final Angel Ramsey MD electronically signed on 04/08/2025 1:30:31 PM with status of Final
== END ==
LOC: HO.CARD 07:48
PROVIDERS: PCP Physician Assistant; Visit Provider Physician Assistant
DX: R01.1 Cardiac murmur, unspecified (principal)
CPT/HCPCS: 93306

== ENCOUNTER → 2025-04-08 07:52 | Outpatient (BNV) | payer MEDICARE, SELFPAY | PROVIDERS: PCP Physician Assistant; Visit Provider Internal Medicine Cardiovascular Disease | DX: I35.8 Other nonrheumatic aortic valve disorders (principal); I34.81 Nonrheumatic mitral (valve) annulus calcification; I77.810 Thoracic aortic ectasia | CPT/HCPCS: 93306 ==

== ENCOUNTER 2025-05-15 09:34 | Outpatient (REF) | payer MEDICARE, SELFPAY ==
--- OUTSIDE RECORDS SUMMARY | 2024-11-03 04:30 | XMS_ITS ---
Author Organization [facility] Address [address] [place] [address] Care Team Providers Care Bond Broker Name Role Phone Susan AMADO, Cale Primary Care Provider Dwight Mckeon [phone] REASON FOR VISIT screening,hx polyps Problems Problem Type SNOMED Code ICD Code Onset Dates Problem Status W/U Status Risk Notes Problem Diverticulosis o f large intestine without perforation or abscess without bleeding (K57.30) Active confirmed Encounters Encounter Location Date Provider Diagnosis [facility] [place] [address] [place] [phone] 11/03/2024 Dwight Rodriguez Colon cancer scree logan Z12.11 ; Rectal polyp K62.1 ; Diverticulosis of large intestine without perforation or abscess without bleeding K57.30 and Other hemorrhoids K64.8 Assessments Encounter Date Diagnosis (ICD Code) Assessment Notes Treatment Notes Treatment Clinical Notes Section Notes 11/03/2024 Colon cancer screening (ICD-10 - Z12.11) 11/03/2024 Rectal polyp (ICD-10 - K62.1) 11/03/2024 Diverticulosis of large intestine without perforation or abscess without bleeding (ICD-10 - K57.30) 11/03/2024 Other hemorrhoids (ICD-10 - K64.8) Plan Of Treatment No Information Progress Notes * THOR GERMANDOB:1955 (69 yo M)Acc No.[id number]:11/03/2024 COLON WITH MAC Patient: Naveen THOR SMALLS Provider: Pérez Rodriguez MD :1955 A ge:69 Y S ex:Male Date:11/03/2024 Address:[address] [place] [address] , [place], [id number] Pcp:Cale Davis MD Subjective: * Chief Complaints: * 1 . Screening,hx polyps. * Medical History: Objective: * Vitals: Assessment: * Assessment: 1. C olon cancer screening - Z12.11 (Primary) 2 . R ectal polyp - K62.1? 3. D iverticulosis of large intestine without perforation or abscess without bleeding - K57.30 4 . O ther hemorrhoids - K64.8 Plan: * Treatment: * Procedure Codes: 4 5385 LESION REMOVAL COLONOSCOPY, Modifiers: PT , 0529F INTRVL 3+YRS PTS CLNSCP DOCD, 0528F RCMND FLW-UP 10 YRS DOCD, Modifiers: 1P * * The named appointment provid er may or may not be the originator of this progress note, and it is not deemed complete until electronically signed by the appointment provider. Sign off status: Pending * Provider: Péerz Rodriguez MD Date: 1 01/04/2024 Generated for Reyna altamirano/Zulay/Cesarsmitting on: 0 05/15/2025 10:00 AM EDT
--- NOTE | ~2025-05-15 | CT_ITS ---
EXAMINATION: CT LOW-DOSE SCREENING CHEST WITHOUT CONTRAST CLINICAL INFORMATION: 69-year-old male, current smoker, 56 pack years, lung cancer screening. COMPARISON: No prior available. TECHNIQUE: Multidetector volumetric CT imaging of the chest is performed on a Siemens SOMATOM Definition scanner without contrast using low dose technique. Additional 2D coronal and sagittal reformatted images and axial 3D maximum intensity projection (MIP) images are generated on the CT workstation. This CT examination was performed using dose optimization techniques as appropriate, variously including the following: *Automated exposure control *Adjustment of mA and/or kV according to patient size (this includes techniques or standardized protocols for targeted exams where dose is matched to indication/reason for exam; i.e. extremities or head) *Use of iterative reconstruction technique FINDINGS: PULMONARY NODULES: -There are a few scattered calcified granulomata, benign. -3 mm nodule right upper lobe anteriorly (series 5, image 70). -There are no left pulmonary nodules. LUNGS: There is mild paraseptal emphysema with upper lobe predominance. There are subpleural foci of scarring in both lower lobes. No consolidations or evidence of interstitial lung disease. Small airways appear normal. Central airways are patent. There are no effusions or pneumothorax. MEDIASTINUM: Normal thyroid. Aorta is normal in caliber with mild calcification. Main pulmonary artery is normal in size. Heart size is normal. No pericardial effusion. Calcified mitral annulus. No esophageal abnormality. No adenopathy or mass. CORONARY ARTERY CALCIFICATION: Heavy three-vessel coronary calcification. CHEST WALL/AXILLA: Unremarkable. UPPER ABDOMEN: Included portions of the solid organs in the upper abdomen unremarkable on noncontrast imaging. OSSEOUS STRUCTURES: No suspicious lytic or blastic bone lesion. Mild spinal degenerative changes present. CT/CT lung screening IMPRESSION: 1. Right upper lobe 3 mm lung nodule. A few calcified granulomata present. 2. Mild paraseptal emphysema. No active lung disease. 3. Ancillary findings as detailed. ASSESSMENT: 1. Lung-RADS Category 2: Benign appearance or behavior of nodules. 2. Lung-RADS Category S: None. RECOMMENDATION: Continued routine annual low-dose CT lung screening in 1 year is recommended. An order for CT CHEST LOW DOSE CANCER SCREENING ([id number]) can be placed. Electronically signed by: Hayden Bal MD 05/15/2025 11:00 AM EDT Workstation: [id number]
== END 2025-05-15 09:35 | disposition home or self-care (01) ==
LOC: HO.CT 09:34
PROVIDERS: PCP Physician Assistant; Visit Provider Physician Assistant Medical
DX: Z12.2 Encounter for screening for malignant neoplasm of respiratory organs (principal); F17.210 Nicotine dependence, cigarettes, uncomplicated
CPT/HCPCS: 71271; G0296

== ENCOUNTER → 2025-05-15 09:36 | Outpatient (BNV) | payer MEDICARE, SELFPAY | PROVIDERS: PCP Physician Assistant; Visit Provider Radiology Diagnostic Radiology | DX: F17.210 Nicotine dependence, cigarettes, uncomplicated (principal) | CPT/HCPCS: 71271 ==

== ENCOUNTER 2025-05-15 11:01 | Outpatient (AMB) | payer MEDICARE, SELFPAY ==
--- NOTE | 2025-05-15 08:00 | A.OFFVIS_ITS ---
Intake Visit Reasons: Current Smoker Allergies No Known Allergies (No Known Allergies*) Allergy (Verified 03/12/25 10:02) HPI HPI Current Smoker: Details: Initial visit for this 69yo smoker with a 25+PYH. Patient started smoking at age 16 for 53 years at 1/2ppd. . Denies marijuana use. Denies second hand smoke exposure. Denies exposure to chemicals or substances like asbestos. . Denies known family history of lung cancer. Personal history of skin cancers. - numerous BCC & SCC with excisions - followed by [facility]. Denies chest CT in last year. . Denies recent travel outside the [place]. Denies recent respiratory illness or recent hospitalization for respiratory issues. Denies testing positive for COVID. Admits receiving COVID Vaccine. . Denies fever, chills, new/worsening cough, hemoptysis, hoarseness or dysphagia. Denies significant chest pain, significant dyspnea or unintentional weight loss. Patient Lung Cancer Screening Questionnaire reviewed with patient by provider. . Shared Decision Making Completed. Patient meets criteria. Discussed in detail with patient, the risk vs benefit of LDCT screening. Patient consents to proceed with scan. Discussed smoking cessation. COUNTS INCLUDE 234 BEDS AT THE [facility] Medical History (Updated 05/15/25 @ 10:58 by Jenny Suarez PA-C) History of SCC (squamous cell carcinoma) of skin Tubular adenoma of colon History of basal cell carcinoma (BCC) Nicotine dependence, cigarettes, uncomplicated Hypertension Surgical History (Updated 04/16/25 @ 10:14 by Jenny Suarez PA-C) History of right knee surgery History of colonoscopy History of Mohs micrographic surgery for skin cancer Family History Father No problems noted. Mother No problems noted. 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 - Patient meets criteria for LDCT for lung cancer screening purposes and is asymptomatic. - Smoking cessation counseling offered. Patients can always call [phone]. - Will arrange for a LDCT scan of the chest for screening purposes at [facility]. - Risks, benefits, and alternatives were discussed in detail and the patient agrees to proceed. - Risks discussed include but are not limited to: radiation exposure, anxiety during testing and while awaiting results, false negatives, false positives and possibility of additional intervention such as further imaging or surgical procedures for benign disease. - Benefits are obviously detection of lung cancer at an early stage which can lead to improved outcomes. - Discussed the importance of screening program compliance with adherence to yearly LDCT scan as scheduled - or sooner interval scans for personalized screening regimen. - Discussed follow up plan. Our office will send a letter discussing results and if needed set up phone call and office visit based on CT findings. - Patient educated on results categorization and the management decisions for suspicious findings potentially found on the screening LDCT scan. Any patient with a Lung RADS score of 3 or 4 will be reviewed by a multidisciplinary team at [facility] to form a plan of action in regards to scan findings. - If further work up is warranted for a suspicious lung finding this will be f ollowed by the Lung Cancer Screening program in conjunction with the Thoracic Surgery Department at [facility]. - A copy of the office note and LDCT will be sent to the patient's PCP - as well as documentation on any associated further plans of care. - Incidental findings on LDCT are the PCP's responsibility. These findings are indicated with an S finding on the LDCT Assessment. A note discussing the findings will be sent to the PCP who is then responsible for further management. - All questions answered.? Coding Level of Care Code Lung Cancer Screening G0296 Diagnoses Nicotine dependence, cigarettes, uncomplicated F17.210
== END 2025-05-15 11:01 | disposition home or self-care (01) ==
LOC: HO.HPS 11:01
PROVIDERS: PCP Physician Assistant; Referring Provider Physician Assistant; Visit Provider Physician Assistant Medical
DX: F17.210 Nicotine dependence, cigarettes, uncomplicated (principal)
CPT/HCPCS: G0296

== ENCOUNTER 2025-07-21 07:46 | Outpatient (REF) | payer MEDICARE, SELFPAY ==
--- OUTSIDE RECORDS SUMMARY | 2024-11-03 04:30 | XMS_ITS ---
Author Organization [facility] Address [address] [place] [address] Care Team Providers Care Cashier Credit Name Role Phone Susan AMADO, Cale Primary Care Provider Dwight Mckeon [phone] REASON FOR VISIT screening,hx polyps Problems Problem Type SNOMED Code ICD Code Onset Dates Problem Status W/U Status Risk Notes Problem Diverticulosis o f large intestine without perforation or abscess without bleeding (K57.30) Active confirmed Encounters Encounter Location Date Provider Diagnosis [facility] Outpatient [address] [place] [phone] 11/03/2024 Dwight Rodriguez Colon cancer scree logan [...] No Information Progress Notes * THOR GERMANDOB:1955 (70 yo M)Acc No.[id number]:11/03/2024 COLON WITH MAC Patient: Naveen THOR SMALLS Provider: Pérez Rodriguez MD :1955 A ge:69 Y S ex:Male Date:11/03/2024 Address:[address] [place] [address] , [place], [place] Pcp:Cale Davis MD Subjective: * Chief Complaints: [...] provider. Sign off status: Pending * Provider: éPrez Rodriguez MD Date: 1 01/04/2024 Generated for Reyna altamirano/Zulay/Cesarsmitting on: 0 07/21/2025 07:49 AM EDT
--- OUTSIDE RECORDS SUMMARY | 2025-07-21 07:49 | XMS_ITS | Patient Health Record ---
Author Organization [facility] Address [address] [place] [address] Care Team Providers Care Senior Electrical Project Manager Name Role Phone Cale Davis MD Primary Care Provider Dwight Mckeon Unavailable [phone] Allergies No Known Allergies Results Component Value Reference Range Notes Pathology (Not yet reviewed by provider) Interpretation: Performing Lab:[facility], [address] [place] [id number] Notes/Report: Reason For Referral No Information Medications Medication [...] Problem Status W/U Status Risk Notes Problem [id number] Encounter for screening for malignant neoplasm of colon (Z12.11) Active confirmed Problem [id number] History of adenomatous polyp of colon (Z86.010) Active confirmed Problem Diverticulosis o f large intestine without perforation or abscess without bleeding (K57.30) Active confirmed Problem 492019201 Preprocedural examination (Z01.818) Active confirmed Vital Signs Blood pressure diastolic 00 mm Hg 07/22/2024 Height 72 in 07/22/2024 Blood pressure systolic 00 mm Hg 07/22/2024 Weight 204 lbs 07/22/2024 BMI 27.66 kg/m2 07/22/2024 Encounters Encounter Location Date Provider Diagnosis [facility] [address] [place], [place] [id number] 11/03/2024 Dwight Rodriguez Colon cancer screeni ng Z12.11 ; Rectal polyp K62.1 ; Diverticulosis of large intestine without perforation or abscess without bleeding K57.30 and Other hemorrhoids K64.8 [facility] [address] [place] [address] 07/22/2024 Dwight Rodriguez History of adenomato us [...] Insured Coverage Start Date Coverage End Date [facility] [address] [place] [address] [id number] THOR GERMAN Self - patient is the insured Medical (General) History Medical History History ICD Code Hypertension Screening colonoscopy 7--1 1.5cm tubular adenoma removed from the rectum, diverticulosis, internal hemorrhoids Denies VA,DM,CVA,Lung disease,renal dise ase Screening colonoscopy in Dec ruary 2017 with small tubular adenomas and hyperplastic polyps removed Surgical History Surgery Date(Month/Year) Right knee arthroscopy 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
[2025-07-21 09:22] LABS: Anion Gap 11 (12-20); Aspartate Amino Transferase 23 U/L (5-37); Blood Urea Nitrogen 12 mg/dL (9-16); Calcium 9.6 mg/dL (8.4-10.2); Carbon Dioxide 27 mmol/L (22-29); Chloride 106 mmol/L (96-108); Estimated Glomerular Filt Rate > 60; Potassium 4.2 mmol/L (3.3-5.1); Sodium 140 mmol/L (135-145)
[2025-07-21 09:23] LABS: Alanine Aminotransferase 24 U/L (0-40); Albumin Level 4.5 g/dL (3.5-5.0); Alkaline Phosphatase 76 U/L (39-117); Cholesterol 205 mg/dL (<200); HDL Cholesterol 35 mg/dL (>40); Total Protein 7.7 g/dL (6.5-8.0); Triglycerides 124 mg/dL (<150)
[2025-07-21 09:40] LABS: Microalbum/Creatinine Ratio Ur 88.1 ug/mg cr (<30)
== END 2025-07-21 07:47 | disposition home or self-care (01) ==
LOC: HO.LAB 07:46
PROVIDERS: Visit Provider Physician Assistant
DX: E78.2 Mixed hyperlipidemia (principal); I10 Essential (primary) hypertension; Z12.5 Encounter for screening for malignant neoplasm of prostate
CPT/HCPCS: 36415; 80053; 80061; 82043; 82570; 84153

== ENCOUNTER 2025-07-28 08:22 | Outpatient (AMB) | payer MEDICARE, SELFPAY ==
--- OUTSIDE RECORDS SUMMARY | 2024-11-03 04:30 | XMS_ITS ---
Author Organization [facility] Address [address] [place] [address] Care Team Providers Care Supervisor Liquefaction Name Role Phone Cale Davis MD Primary Care Provider Dwight Mckeon Unavailable [phone] REASON FOR VISIT screening,hx polyps Problems Problem Type SNOMED Code ICD Code Onset Dates Problem Status W/U Status Risk Notes Problem Diverticular disease of colon (780476413) Diverticulosis of large intestine without perforation or abscess without bleeding (K57.30) Active confirmed Encounters Encounter Location Date Provider Diagnosis [facility] [place] [address] [place] [phone] 11/03/2024 Dwight Rodriguez Colon cancer scree logan [...] Notes * THOR GERMANDOB:1955 (70 yo M)Acc No.[id number]:11/03/2024 COLON WITH MAC Patient: Naveen THOR SMALLS Provider: Pérez Rodriguez MD :1955 A ge:69 Y S ex:Male Date:11/03/2024 Address:[address] [place] [address] , [place], [place] Pcp:Cale Davis MD Subjective: * Chief Complaints: [...] provider. Sign off status: Pending * Provider: Pérez Rodriguez MD Date: 1 01/04/2024 Generated for Reyna altamirano/Zulay/Cesarsmitting on: 0 07/28/2025 09:23 AM EDT
--- NOTE | 2025-07-28 08:33 | MHC.PC.OV ---
Vital Signs 07/28/25 08:34 Height 6 ft Weight 209 lb 2 oz BMI 28.4 BP 150/80 H Blood Pressure Location Lt brachial Position Sitting Pulse 73 Pulse Source Pulse Oximeter Temp 97.3 F Temp Source Temporal Artery Scan Pulse Oximetry (%) 98 Oxygen Delivery Method Room Air Intake Visit Reasons: PE - see comments Intake Note: Patient is here today for a physical. Miscellaneous Machine Operator Required: No Warp Dyeing Vat Tender: Not Required per policy Accompanied by: Self / Same As Patient Allergies No Known Allergies (No Known Allergies*) Allergy (Verified 07/28/25 08:42) Medication List - Last Reconciled 07/28/25 by Aden Olivares PA-C losartan 50 mg PO DAILY Tobacco use date assessed: 07/28/25 Fall risk assessment: No Falls in past year Last assessed Fall Risk: 07/28/25 Dental Screening Dental Screen Date: 03/12/25 HPI PE - see comments HPI Details Dougie is a 70 year-old male here today for a routine annual physical. Patient has a past medical history significant for hypertension and hyperlipidemia. HTN: His current home measurements typically ranging from 130 to 135 mmHg systolic, although in-office readings are higher, likely due to white coat syndrome. He is currently on losartan 50 mg, and there is consideration to switch to a combination medication with hydrochlorothiazide to better manage his blood pressure. . Tobacco dependency: The patient reports longstanding tobacco use since adolescence, presently smoking half a pack a day. He is followed by lung cancer screening program, most recent CT chest showing BI-RADS 2 repeat 1 year, A lung nodule was identified during a lung cancer screening CT, along with calcified granulomas, .. Mild dilation of the ascending aorta: : The patient has calcification of the aortic and mitral valves, and mild dilation of the ascending aorta, likely related to smoking and hypertension. These findings are being monitored, with emphasis on managing blood pressure and smoking cessation to prevent progression. .. Hyperlipidemia Has a history of borderline high cholesterol, will recheck his fasting labs to ensure stable cholesterol. Noted borderline high total cholesterol and LDL 146. Was previously on statin therapy and is willing to restart statin therapy to reduce his cardiovascular risk Vaccines: Considering Flu vaccine, UTD with COVID , PCV Colorectal cancer screening: Colonoscopy done in 2023 repeat 5 years Laboratory Tests 04/11/22 03/14/24 07/21/25 08:09 08:44 08:10 Cholesterol 202 209 H LDL Cholesterol, C alc 155 H PSA Screen 2.93 Urine Microalbumin 27.0 07/21/25 08:15 Cholesterol 205 H LDL Cholesterol, C alc PSA Screen 4.32 H Urine Microalbumin PFSH Medical History History of alcohol use disorder History of SCC (squamous cell carcinoma) of skin Tubular adenoma of colon History of basal cell carcinoma (BCC) Nicotine dependence, cigarettes, uncomplicated Hypertension Surgical History History of right knee surgery History of colonoscopy History of Mohs micrographic surgery for skin cancer Family History Father No problems noted. Mother No problems noted. 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 1. Little interest or pleasure in doing things: not at all 2. Feeling down, depressed, or hopeless: not at all 3. Trouble falling or staying asleep, or sleeping too much: not at all 4. Feeling tired or having little energy: not at all 5. Poor appetite or overeating: not at all 6. Feeling bad about yourself - or that you are a failure or have let yourself or your family down: not at all 7. Trouble concentrating on things, such as reading the newspaper or watching television: not at all 8. Moving or speaking so slowly that other people could have noticed. Or the opposite - being so fidgety or restless that you have been moving around a lot more than usual: not at all 9. Thoughts that you would be better off or of hurting yourself in some way: not at all Total score: 0 Depression Screening Interpretation: Negative Depression Screening Done: Yes 81622 - PHQ-9 Billing: Yes Source: Developed by Drs. Dwight Muñoz, Mag Wynn, Andrea Gutierrez and colleagues, with an educational jose from [employer]. Thrive Questionnaire Date Thrive assessed: 03/12/25 I am a: Patient What is your living situation today?: I have a steady place to live Within the past 12 months, did the food you bought not last and you didn't have the money to get more?: Sometimes True Within the past 12 months, did you worry whether your food would run out before you got money to buy more?: Never true Do you have trouble paying for medicines?: No Do you have trouble getting transportation to medical appointments?: No Do you have trouble paying your heating and electricity bill?: No Do you have trouble taking care of your child, family member or friend?: No Do you have trouble with day-to-day activities such as bathing, preparing meals, shopping, managing finances, etc.?: No Are you currently unemployed and looking for a job?: No Are you interested in more education?: No Please select the resources that you would like help with: None Currently or been in a relationship where the following occur: No concerns reported THRIVE Score: 1 AUDIT C Alcohol Use Questionnaire (AUDIT-C) 1. How often do you have a drink containing alcohol?: Never Total Score: 0 TIMOTHY-7 AMB Questionnaire TIMOTHY-7 Date TIMOTHY - 7 assessed: 03/12/25 Feeling nervous, anxious, or on edge: 0 = Not at all Not being able to stop or control worryin = Not at all Worrying too much about different things: 0 = Not at all Trouble relaxin = Not at all Being so restless that it is hard to sit still: 0 = Not at all Becoming easily annoyed or irritable: 0 = Not at all Feeling afraid as if something awful might happen: 0 = Not at all Total TIMOTHY-7 score (0-4 normal; 5-9 mild; 10-14 moderate; 15-21 severe): 0 Source: Developed by Drs. Dwight Muñoz, Mag Wynn, Andrea Gutierrez and colleagues, with an educational jose from [employer]. TIMOTHY-7 Assessment Billing TIMOTHY-7 Assessment Tool: TIMOTHY-7 Assessment 40796 Review of Systems Const Denies body aches, Denies chills, Denies excessive sweating, Denies fatigue, Denies fever(s) and Denies headache(s) Eyes Denies blurry vision ENT Denies dysphagia, Denies vertigo, Denies dizziness, Denies headache(s), Denies hearing loss and Denies tinnitus Card Denies chest pain, Denies chest pain with activity, Denies syncope, Denies irregular heart rhythm and Denies dyspnea Resp Denies chest congestion, Denies cough, Denies hemoptysis, Denies dyspnea and Denies wheezing GI Denies abdominal pain, Denies melena, Denies hematochezia, Denies coffee ground emesis, Denies dysphagia, Denies diarrhea, Denies nausea and Denies vomiting Denies difficulty urinating, Denies dysuria, Denies urinary frequency, Denies urinary hesitancy and Denies urinary urgency Musc Denies arthralgias, Denies limited range of motion, Denies muscle cramps and Denies muscle weakness Skin/Breast Denies rash and Denies skin ulcer Neuro Denies Abnormal speech present, Denies confusion, Denies vertigo, Denies dizziness, Denies syncope, Denies headache(s), Denies memory loss and Denies seizure-like activity Psych Denies anxiety, Denies confusion, Denies depression, Denies memory loss, Denies panic attacks and Denies paranoia Endo Denies excessive sweating, Denies fatigue, Denies flushing, Denies polydipsia and Denies polyuria Aller/Immun Denies wheezing Physical exam (Primary Care) Vital Signs: Last Vital Signs Temp 97.3 F 07/28/25 08:34 Pulse 73 07/28/25 08:34 BP 150/80 H 07/28/25 08:34 Pulse Ox 98 07/28/25 08:34 Oxygen Delivery Method Room Air 07/28/25 08:34 Care Plan Goal for BP management: Continue monitoring and working on lifestyle and dietary modifications. Next steps: Will add on hydrochlorothiazide to his blood pressure med regime for better blood pressure control BMI result Body Mass Index 28.4 Tobacco/Smoking Status: Tobacco use Status Tobacco use date assessed 07/28/25 07/28/25 08:39 Patient Tobacco Use Status Current everyday Tobacco 07/28/25 08:39 Tobacco use type Cigarette 07/28/25 08:39 e-Cigarette/Vaping Use Never Used 07/28/25 08:39 Are you ready to quit: Yes Tobacco cessation counseling provided: Yes Items discussed: Nicotine replacement Relapse Prevention: discussed the importance of a supportive environment, discussed negative mood or depression after quitting, weight gain after smoking is common and discussed dietary, exercise and/or lifestyle changes Number of minutes spent counselin CPT code: 23501 - 4-10 Minutes PHQ-9: PHQ-9 Score PHQ-9: Total score 0 07/28/25 08:39 Depression Screening Interpretation: Negative Thrive Assessment: Date of Thrive Assessment Date Thrive assessed 03/12/25 07/28/25 08:39 Currently or been in a relationship where the following occur: No concerns reported Const General: cooperative, comfortable, no acute distress, alert and awake; No confusion Orientation/consciousness: oriented to person, oriented to place, patient oriented x3 and No confusion HENMT Head: Yes normocephalic Ears: external ears normal and TM's normal bilaterally Face and sinus: No sinus tenderness Mouth: Normal oral and palatal mucosa present and tongue normal Teeth and gingiva: dentition normal and gingiva normal Throat: Yes posterior oropharynx normal, Yes tonsils normal and Yes uvula midline Eyes Conjunctivae: conjunctivae normal Sclerae: sclerae normal Pupils: Equal, round and reactive pupils present EOM: EOMs intact bilaterally Direct Ophthalmoscopy: No no photophobia Neck Neck: Yes no lymphadenopathy, No tender and Yes no JVD Thyroid: Thyroid normal Carotids: no bruits Chest Chest palpation & inspection: no tenderness Resp Effort & Inspection: normal respiratory effort, no audible wheezes, not labored and no stridor Auscultation: no crackles, no rales, no rhonchi and no wheezes Cardio Jugular venous distension: no JVD Rate: regular rate, not bradycardic and not tachycardic Rhythm: regular rhythm Bruits: no carotid bruits Peripheral pulses: Peripheral pulses 2+ throughout GI Inspection: Yes normal to inspection, No abdominal wall ecchymosis and No visible herniation Palpation (GI): Soft to palpation, nontender, no guarding, not rigid and No hepatosplenomegaly present Auscultation: normoactive bowel sounds General: Yes no CVA tenderness Back/Spine/Pelvis Back: no CVA tenderness and No back tenderness Cervical Spine: cervical ROM normal Thoracic/Lumbar Spine: thoracic and lumbar spine normal to inspection, straight leg raise negative bilaterally, No thoraco-lumbar ROM limited and No lumbar spinal tenderness Skin Lesions: no lesions Rashes: no rashes Wounds: no wounds Neuro General: oriented to person, oriented to place, patient oriented x3, CN's II-XI intact bilaterally and No confusion Cranial nerves: Yes Equal, round and reactive pupils present and Yes Normal accommodation reflex present Cognition (Neuro): normal cognition Speech: No Abnormal speech present Gait exam (Neuro): Normal gait present Motor exam (neuro): 5/5 motor strength present throughout Extrem Right upper extremity: full ROM; no cyanosis Left upper extremity: full ROM; no cyanosis Right lower extremity: no edema Left lower extremity: no edema Psych Appearance: grossly normal Mental Status: mental status grossly normal Affect: normal affect Attitude: cooperative Thought process: Normal thought process present Coding Level of Care Code Est Pt Prev Care >65y(53670) Diagnoses Annual physical exam Z00.00 Primary hypertension I10 Hypertension type: primary hypertension Mixed hyperlipidemia E78.2 Hyperlipidemia type: mixed hyperlipidemia Tobacco dependence F17.200 Mild ascending aorta dilatation I77.810 Additional Codes PHQ-9 - 36980 - PHQ-9 Billing: Yes ([id number]) TIMOTHY-7 Assessment Billing - TIMOTHY-7 Assessment Tool: TIMOTHY-7 Assessment 69632 ([id number]) Vital Signs *Quality* - CPT code: 45311 - 4-10 Minutes ([id number]) Assessment & Plan Assessment & Plan (1) Annual physical exam: Code(s): Z00.00 - Encounter for general adult medical examination without abnormal findings Category: Medical Plan: As per HPI (2) Hypertension: Code(s): I10 - Essential (primary) hypertension Category: Medical Qualifiers: Hypertension type: primary hypertension Qualified Code(s): I10 - Essential (primary) hypertension Plan: The patient has essential hypertension with current home blood pressure readings around 130-135 mmHg, but higher readings in the office, likely due to white coat syndrome. He is currently on losartan 50 mg, and a switch to a combination medication with hydrochlorothiazide is being considered to improve blood pressure control. (3) HLD (hyperlipidemia): Code(s): E78.5 - Hyperlipidemia, unspecified Category: Medical Qualifiers: Hyperlipidemia type: mixed hyperlipidemia Qualified Code(s): E78.2 - Mixed hyperlipidemia Plan: The patient has hyperlipidemia with a total cholesterol of 205 mg/dL, HDL of 35 mg/dL, and LDL of 146 mg/dL. A low-dose statin is being considered due to his cardiovascular risk factors, including hypertension and smoking. Goal LDL to be optimally below 100 (4) Tobacco dependence: Code(s): F17.200 - Nicotine dependence, unspecified, uncomplicated Category: Medical Plan: Patient does understand he needs to quit smoking though is not willing to at this time. A lung nodule was identified during a lung cancer screening CT, along with calcified granulomas. A follow-up CT is planned in one year to monitor these findings. He has been smoking over the last 40 50 years. (5) Mild ascending aorta dilatation: Code(s): I77.810 - Thoracic aortic ectasia Category: Medical Plan: The patient has mild dilation of the ascending aorta, likely related to smoking and hypertension. This condition is being monitored, with emphasis on managing blood pressure and smoking cessation to prevent progression. Orders: Orders Microalbumin, Random (w Creat) Today I10 - Essential (primary) hypertension Lipid Panel Today E78.2 - Mixed hyperlipidemia Complete Blood Count no Diff Today E78.2 - Mixed hyperlipidemia Comprehensive [place]. Panel Fast Today E78.2 - Mixed hyperlipidemia Prostate Specific Antigen Scr Today I10 - Essential (primary) hypertension, Z12.5 - Encounter for screening for malignant neoplasm of prostate Medications: New losartan-hydrochlorothiazide 50-12.5 mg 1 tab PO DAILY 90 tabs 1RF 90 days I10 - Essential (primary) hypertension atorvastatin (Lipitor) 10 mg PO DAILY 90 tabs 1RF 90 days E78.2 - Mixed hyperlipidemia On Hold losartan Hold Comment: Doctor's Order 50 mg PO DAILY 90 tabs 2RF
[2025-07-28 08:34] VITALS: BP 150/80; PULSE 73; TEMP 36.3; O2SAT 98; BMI 28.4
--- OUTSIDE RECORDS SUMMARY | 2025-07-28 09:24 | XMS_ITS | Patient Health Record ---
Author Organization [facility] Address [address] [place] [address] Care Team Providers Care Stripper [place]quer Name Role Phone Cale Davis MD Primary Care Provider Dwight Mckeon Unavailable [phone] Allergies No Known Allergies Results Component Value Reference Range Notes Pathology (Not yet reviewed by provider) Interpretation: Performing Lab:[facility], [address] [place] [id number] Notes/Report: Reason For Referral No Information Medications [...] Problem Status W/U Status Risk Notes Problem [id number] Encounter for screening for malignant neoplasm of colon (Z12.11) Active confirmed Problem 820508403 History of adenomatous polyp of colon (Z86.010) Active confirmed Problem Diverticular disease of colon (393004049) Diverticulosis of large intestine without perforation or abscess without bleeding (K57.30) Active confirmed Problem 504031444 Preprocedural examination (Z01.818) Active confirmed Encounters Encounter Location Date Provider Diagnosis [facility] [place] [facility] [address] [place] [id number] 11/03/2024 Diwght Rodriguez Colon cancer scree logan Z12.11 ; [...] Insured Coverage Start Date Coverage End Date [employer] [address] [place] [address] [id number] THOR GERMAN Self - patient is the insured Medical (General) History Medical History History ICD Code Hypertension Screening colonoscopy 7--1 1.5cm tubular adenoma removed from the rectum, diverticulosis, internal hemorrhoids Denies SC,DM,CVA,Lung disease,renal dise ase Screening colonoscopy in Dec with small tubular adenomas and hyperplastic polyps removed Surgical History Surgery Date(Month/Year) Right knee arthroscopy 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
== END 2025-07-28 09:03 | disposition home or self-care (01) ==
LOC: HO.HMCH 08:23
PROVIDERS: PCP Physician Assistant; Visit Provider Physician Assistant
DX: Z00.00 Encounter for general adult medical examination without abnormal findings (principal); I10 Essential (primary) hypertension; E78.2 Mixed hyperlipidemia; F17.200 Nicotine dependence, unspecified, uncomplicated; I77.810 Thoracic aortic ectasia

== ENCOUNTER → 2025-07-28 08:22 | Outpatient (BNVA) | payer MEDICARE, SELFPAY | PROVIDERS: PCP Physician Assistant; Visit Provider Physician Assistant | DX: Z00.00 Encounter for general adult medical examination without abnormal findings (principal); I10 Essential (primary) hypertension; E78.2 Mixed hyperlipidemia; I77.810 Thoracic aortic ectasia; F17.210 Nicotine dependence, cigarettes, uncomplicated | CPT/HCPCS: 96127; 99397 ==